=== PATIENT | female | born 1975 | race Caucasian/White ===

== ENCOUNTER 2019-06-02 00:56 | Day surgery (SDC) | payer BC, SELFPAY ==
[2019-05-27 13:07] VITALS: BMI 50.3
--- NOTE | 2019-06-02 09:57 | WPDANESEPPF ---
Anes - Initial Pre Proc Eval Procedure: Operation Date: 06/02/19 11:00 Proposed Procedures p Esophagogastroduodenoscopy & Colonoscopy - Dmitry Li MD Date/Time: 06/02/19 09:57 Surgeon: Dmitry Li MD Pre Op Diagnosis: Dysphagia, GERD, Adenomatous Colon Polyp Patient Data Age: 44 Gender: F Height: 5 ft 2 in Weight: 125 kg Allergies Allergy/AdvReac Type Severity Reaction Status Date / Time aspirin Allergy Unknown Verified 05/27/19 13:06 cimetidine Allergy Unknown Verified 05/27/19 13:06 warfarin Allergy Unknown Verified 05/27/19 13:06 Contrast Media Allergy Unknown ORAL Uncoded 05/27/19 13:06 CONTRAST ONLY-RASH Home Medications Medication Instructions Recorded Confirmed Type acetaminophen 325 mg tablet 325 mg PO Q6H PRN 04/30/19 05/27/19 History ibuprofen 200 mg capsule 200 mg PO Q6H PRN 04/30/19 05/27/19 History ranitidine HCl 150 mg capsule 150 mg PO DAILY 04/30/19 05/27/19 History duloxetine 20 mg PO BID 05/27/19 05/27/19 History Patient hx anesthesia problems: none Family hx anesthesia problems: none PMFSH Past Medical History Medical History Adenomatous colon polyp Arthritis section wound complication Diabetes Dysphagia GERD (gastroesophageal reflux disease) Ulcer Surgical History Surgical History H/O knee surgery History of bilateral breast reduction surgery Family History Family History Mother Family history of osteoporosis Family history of rheumatoid arthritis Other Cerebrovascular accident Family history of arthritis Social History Social History Smoking status: Former smoker Smoking end date: 04/29/00 Alcohol intake: current Gender identity (if verbalized by the patient): Female Anes - Eval Final PreProcedure Day of Procedure 06/02/19 09:57 Patient weight: morbidly obese Heart: regular rate and rhythm Lungs: clear to auscultation Airway: Mallampati scale class II Neurological: alert and oriented Last oral intake: >/= 8 hours ASA classification: III Emergent: no Anesthetic plan: proceed Anesthesia type and monitoring: general GIVS and standard monitoring Informed Consent: The patient's anesthetic plan and its attendant risks and benefits were discussed with the patient/family/POA. Questions were solicited and answers provided to the satisfaction of the patient/family/POA.
[2019-06-02] MEDS: LACTATED RINGERS 1,000 ML 150 ML IV CONT (09:58)
[2019-06-02 10:17] VITALS: BP 113/76; PULSE 83; RESP 16; TEMP 36.6; O2SAT 97; BMI 50.5
--- NOTE | 2019-06-02 10:36 | PM.HPGS ---
History of Present Illness History of Present Illness Consent: Risks, benefits, and alternatives have been discussed and questions answered. Patient agrees to proceed with procedure. Chief complaint: Dysphagia, GERD, Adenomatous Colon Polyp Narrative: Catrachita Serrato is a 44 year old female with gerd and dsyphagia on zantac, also history of colon polyps Review of Systems Constitutional: Constitutional: Denies headache(s) and Denies weakness Eyes: Eyes: Denies blurry vision ENT: Reports Normal hearing present, Denies headache(s) and Denies neck pain Cardiovascular: Cardiovascular: Denies chest pain and Denies dyspnea Respiratory: Respiratory: Denies dyspnea Gastrointestinal: Gastrointestinal: Reports no additional gastrointestinal complaints Genitourinary: Genitourinary: Denies dysuria Musculoskeletal: Musculoskeletal: Denies neck pain Integumentary/Breasts: Skin/Breast: Denies dry skin Neurologic: Reports Normal hearing present, Denies headache(s) and Denies weakness Psychiatric: Psychiatric: Denies anxiety Endocrine: Endocrine: Denies change in body appearance Hematologic/Lymphatic: Hematologic/Lymphatic: Denies easy bleeding Allergic/Immunologic: Allergic/Immunologic: Denies urticaria PMFSH Past Medical History Medical History Adenomatous colon polyp Arthritis section wound complication Diabetes Dysphagia GERD (gastroesophageal reflux disease) Ulcer Surgical History Surgical History H/O knee surgery History of bilateral breast reduction surgery Family History Family History Mother Family history of osteoporosis Family history of rheumatoid arthritis Other Cerebrovascular accident Family history of arthritis Social History Social History Smoking status: Former smoker Smoking end date: 04/29/00 Alcohol intake: current Gender identity (if verbalized by the patient): Female Meds Home Medications and Allergies Home Medications Medication Instructions Recorded Confirmed Type acetaminophen 325 mg tablet 325 mg PO Q6H PRN 04/30/19 05/27/19 History ibuprofen 200 mg capsule 200 mg PO Q6H PRN 04/30/19 05/27/19 History ranitidine HCl 150 mg capsule 150 mg PO DAILY 04/30/19 05/27/19 History duloxetine 20 mg PO BID 05/27/19 05/27/19 History Allergies Allergy/AdvReac Type Severity Reaction Status Date / Time aspirin Allergy Unknown Verified 06/02/19 09:59 cimetidine Allergy Unknown Verified 06/02/19 09:59 warfarin Allergy Unknown Verified 05/27/19 13:06 Contrast Media Allergy Unknown ORAL Uncoded 06/02/19 09:59 CONTRAST ONLY-RASH Vital Signs Vital Signs - 24 hr 06/02/19 10:17 Temperature 98 F Pulse Rate 83 Respiratory Rate 16 Blood Pressure 113/76 Pulse Oximetry 97 Exam Const: General: comfortable and no acute distress Nutritional Appearance: obese HENMT: General nose exam: Normal nares present Eyes: General: appearance normal, both eyes and all related structures Neck: Neck: no JVD Resp: Auscultation: clear to auscultation bilaterally Cardio: Rate: regular rate Rhythm: regular rhythm GI: Inspection: non-distended GI Palp: Yes Soft to palpation Skin: General skin exam: normal color Neuro: General: gait normal Speech: normal speech Extrem: General: normal to inspection Psych: Mental Status: mental status grossly normal Assessment and Plan Assessment and plan (1) Dysphagia: Qualifiers: Dysphagia type: pharyngoesophageal phase Qualified Code(s): R13.14 - Dysphagia, pharyngoesophageal phase Code(s): R13.10 - Dysphagia, unspecified Status: Acute Assessment and Plan: will proceed with egd (2) Adenomatous colon polyp: Qualifiers: Colon location: unspec
[2019-06-02 11:15] VITALS: BP 91/48; PULSE 85; RESP 23; O2SAT 100
[2019-06-02 11:25] VITALS: BP 102/67; PULSE 78; RESP 16; O2SAT 100
[2019-06-02 11:35] VITALS: BP 111/65; PULSE 77; RESP 22; O2SAT 100
== END 2019-06-02 11:46 | disposition home or self-care (01) ==
PROVIDERS: PCP Internal Medicine; Visit Provider Internal Medicine Gastroenterology
PROC: 0DJ08ZZ Inspection of Upper Intestinal Tract, Via Natural or Artificial Opening Endoscopic (ICD-10-PCS; CPT 43235; principal; 2019-06-02 11:00)
DX: K22.2 Esophageal obstruction (principal); K22.10 Ulcer of esophagus without bleeding; K21.0 Gastro-esophageal reflux disease with esophagitis; K44.9 Diaphragmatic hernia without obstruction or gangrene; K29.70 Gastritis, unspecified, without bleeding; K29.80 Duodenitis without bleeding; Z12.11 Encounter for screening for malignant neoplasm of colon; K63.5 Polyp of colon; K64.8 Other hemorrhoids; E11.9 Type 2 diabetes mellitus without complications; Z87.891 Personal history of nicotine dependence
CPT/HCPCS: 45385; 43239; 43249; 87081; 88305; C1726; J2704; J7120

== ENCOUNTER 2019-09-22 08:19 | Outpatient (CLI) | payer BC, SELFPAY ==
--- NOTE | ~2019-09-22 | US_ITS ---
US right upper quadrant INDICATION: Elevated liver enzymes PROCEDURE: Realtime right upper abdominal ultrasound. COMPARISON: No prior studies for comparison. FINDINGS: The pancreas is normal without focal mass or pancreatic ductal dilation. Liver echotexture is increased, consistent with fatty infiltration. There is normal directional flow in the portal ve in. The gallbladder is normal without stones, gallbladder wall thickening or pericholecystic fluid. Comm on bile duct measures 4 mm. No sonographic Rutledge's sign. IMPRESSION: 1: Fatty infiltration of the liver. Reviewed, dictated and finalized at location A.
== END 2019-09-22 08:20 | disposition home or self-care (01) ==
PROVIDERS: PCP Internal Medicine; Visit Provider Internal Medicine
DX: R94.5 Abnormal results of liver function studies (principal)
CPT/HCPCS: 76705

== ENCOUNTER 2020-03-30 12:00 | Outpatient (CLI) | payer BC, SELFPAY ==
[2020-03-30 13:54] LABS: SARS-CoV-2 Ag Negative (Negative)
== END 2020-03-30 12:01 | disposition home or self-care (01) ==
LOC: CHSLAB 12:03
PROVIDERS: PCP Internal Medicine; Visit Provider Internal Medicine
DX: Z20.828 Contact with and (suspected) exposure to other viral communicable diseases (principal)
CPT/HCPCS: 87426

== ENCOUNTER 2020-05-23 10:05 | Outpatient (CLI) | payer BC, SELFPAY ==
[2020-05-23 11:13] LABS: SARS-CoV-2 Ag Negative (Negative)
[2020-05-23 22:05] LABS: SARS-CoV-2 RNA PCR Negative
== END 2020-05-23 10:06 | disposition home or self-care (01) ==
LOC: CHSLAB 10:10
PROVIDERS: PCP Internal Medicine; Visit Provider Internal Medicine
DX: Z20.822 Contact with and (suspected) exposure to COVID-19 (principal)
CPT/HCPCS: 87426; C9803; U0003; U0005

== ENCOUNTER 2020-07-21 08:19 | Outpatient (CLI) | payer BC, SELFPAY ==
--- NOTE | ~2020-07-21 | MM_ITS ---
EXAMINATION: MM screening [facility] BI [facility] HISTORY: Screening mammogram TECHNIQUE: Craniocaudal and mediolateral oblique 3-D tomosynthesis images were obtained and synthetic 2-D images were generated. CAD analysis was submitted and interpreted. COMPARISON: 10/09/2018, 10/05/2017, 08/22/2016 BREAST PARENCHYMAL COMPOSITION: The breasts are almost entirely fatty. FINDINGS: A stable mass in the upper outer quadrant of the left breast is considered benign given the lack of interval change. There is no evidence of suspicious mass, calcification, or architectural di stortion to suggest malignancy in either breast. There has been no suspicious interval change. IMPRESSION: 1. No mammographic evidence of malignancy. 2. Recommend routine screening mammography in one year. BI-RADS Category 2: Benign finding(s). Reviewed, dictated and finalized at location A.
== END 2020-07-21 08:20 | disposition home or self-care (01) ==
LOC: ANHIMG 08:21
PROVIDERS: PCP Internal Medicine; Visit Provider Obstetrics & Gynecology
DX: Z12.31 Encounter for screening mammogram for malignant neoplasm of breast (principal)
CPT/HCPCS: 77063; 77067

== ENCOUNTER 2020-08-18 10:42 | Outpatient (CLI) | payer BC, SELFPAY ==
[2020-08-18 11:36] LABS: Basophils Absolute Auto 0.03 K/mm3 (0.00-0.10); Basophils Percent Auto 0.4 % (0.0-1.0); Eosinophils Absolute Auto 0.31 K/mm3 (0.02-0.50); Eosinophils Percent Auto 4.3 % (1.0-6.0); Hematocrit 44.1 % (35.0-49.0); Hemoglobin 14.3 g/dL (12.0-15.0); Immature Granulocyte Absolute 0.02 K/mm3 (0.00-0.00); Immature Granulocyte Percent A 0.3 % (0.0-0.0); Lymphocytes Absolute Auto 1.67 K/mm3 (1.10-4.50); Lymphocytes Percent Auto 23.4 % (18.0-42.0); Mean Corpuscular HGB Conc 32.4 g/dL (32.0-36.0); Mean Corpuscular Hemoglobin 30.4 pg (27.0-31.0); Mean Corpuscular Volume 93.6 fL (78.0-102.0); Mean Platelet Volume 9.4 fl (9.2-11.8); Monocytes Absolute Auto 0.31 K/mm3 (0.10-0.90); Monocytes Percent Auto 4.3 % (2.0-11.0); Neutrophils Absolute Auto 4.8 K/mm3 (1.7-7.2); Neutrophils Percent Auto 67.3 % (50.0-70.0); Platelet Count Result 276 K/mm3 (150-420); Red Blood Count 4.71 M/mm3 (4.20-5.40); Red Cell Distribution Width 12.2 % (11.6-14.4); White Blood Count 7.1 K/mm3 (4.8-10.8)
[2020-08-18 11:43] LABS: Appearance Urine Clear (Clear); Bilirubin Urine Negative (Negative); Color Urine Yellow (Yellow); Glucose Urine UA Negative (Negative); Ketones Urine Negative (Negative); Leukocyte Esterase Ur Negative LEU/UL (Negative); Nitrate Urine Negative (Negative); Protein Urine Negative (Negative); Urobilinogen Urine 0.2 mg/dL (0.2-1.0)
[2020-08-18 12:04] LABS: Alanine Aminotransferase 58 U/L (14-59); Albumin Level 3.5 g/dL (3.4-5.0); Alkaline Phosphatase 94 U/L (46-116); Anion Gap 7 mmol/L (8-16); Aspartate Amino Transferase 29 U/L (15-37); Bilirubin,Total 0.9 mg/dL (0.00-1.00); Blood Urea Nitrogen 12 mg/dL (7-18); Calcium 8.5 mg/dL (8.5-10.1); Carbon Dioxide 30 mmol/L (21-32); Chloride 102 mmol/L (98-108); Estimated Glomerular Filt Rate > 60; Glucose 185 mg/dL (70-99); Osmolality Calculated 292 mOsm/kg (285-295); Sodium 139 mmol/L (136-145); Total Protein 6.7 g/dL (6.4-8.2)
[2020-08-18 12:12] LABS: SARS-CoV-2 RNA PCR Negative (Negative)
[2020-08-18 12:20] LABS: Add Urine Microscopic? YES; Blood Urine Trace-Intact (Negative); Squamous Epithelial Cell Urine Many /hpf (Few); WBC Urine 0-3 /hpf (0-3)
[2020-08-18 12:21] LABS: Bacteria Urine 2+ /hpf
[2020-08-18 14:31] LABS: Hemoglobin A1C 5.8 % (<5.7)
== END 2020-08-18 10:43 | disposition home or self-care (01) ==
PROVIDERS: PCP Internal Medicine; Visit Provider Internal Medicine
DX: R05 Cough (principal); R53.83 Other fatigue; R11.0 Nausea; Z20.822 Contact with and (suspected) exposure to COVID-19; R73.01 Impaired fasting glucose
CPT/HCPCS: 36415; 80053; 81001; 83036; 84443; 85025; 86769; C9803; U0003; U0005

== ENCOUNTER 2020-10-13 00:22 | Emergency (ER) | payer BC, SELFPAY ==
--- NOTE | ~2020-10-13 | XR_ITS ---
XR chest 1V portable DATE: 10/13/2020 01:01 INDICATION: Cough, shortness of breath TECHNIQUE: Portable AP chest on 10/13/2020 at 0109 hours COMPARISON: 11/11/2018 2 view chest 01/15/2019 CT chest high resolution scan FINDINGS: Normal heart size. No hilar or mediastinal enlargement. No pulmonary infiltrate or consolidation, pleural effusion or pulmonary vascular congestion or pneumo thorax. Included skeletal structures are unremarkable. IMPRESSION: No active cardiopulmonary disease Reviewed, dictated and finalized at location A.
[2020-10-13 00:22] VITALS: BP 125/88; PULSE 97; RESP 20; TEMP 36.3; O2SAT 97
--- NOTE | 2020-10-13 00:36 | ECG_ITS ---
Measurements Intervals Bailey Rate: 95 P: 70 ND: 143 QRS: 70 QRSD: 89 T: 51 QT: 345 QTc: 434 Interpretive Statements SINUS RHYTHM BASELINE ARTIFACT- I, III, AVR, AVL, AVF NORMAL ECG Electronically Signed On 10-13-2020 7:42:10 CDT by Bao Dodd D.O.
--- NOTE | 2020-10-13 00:38 | ED.GENADULT ---
HPI - General Adult General Chief complaint: Shortness of Breath/Dyspnea Stated complaint: Shortness of Breath Source: patient Mode of arrival: ambulatory Limitations: no limitations History of Present Illness HPI narrative: Catrachita is a 45F with a PMH of GERD, tobacco abuse and possibly COPD that presented to the ED with SOB and a cough. She slept with a fan on 2 nights ago. When she woke up she was wheezing and had SOB as well as a cough. They have been getting worse. It was better after using a friends inhaler. She had a virtual visit with Dr. Morrell but couldn't wait until then. No fevers, chills, CP, nausea, vomiting, or lightheadedness. Related Data Home Medications Medication Instructions Recorded Confirmed acetaminophen 325 mg tablet 325 mg PO Q6H PRN 04/30/19 10/13/20 ibuprofen 200 mg capsule 200 mg PO Q6H PRN 04/30/19 10/13/20 ranitidine HCl 150 mg capsule 150 mg PO DAILY 04/30/19 10/13/20 duloxetine 20 mg PO BID 05/27/19 10/13/20 Allergies Allergy/AdvReac Type Severity Reaction Status Date / Time aspirin Allergy Unknown Verified 06/02/19 09:59 cimetidine Allergy Unknown Verified 06/02/19 09:59 warfarin Allergy Unknown Verified 05/27/19 13:06 Contrast Media Allergy Unknown ORAL Uncoded 06/02/19 09:59 CONTRAST ONLY-RASH Review of Systems Constitutional: Constitutional: Reports no additional constitutional complaints Eyes: Eyes: Reports no additional eye complaints ENT: Reports system reviewed and no additional complaints, except as documented Cardiovascular: Cardiovascular: Reports no additional cardiovascular complaints Respiratory: Respiratory: Reports as per HPI Gastrointestinal: Gastrointestinal: Reports no additional gastrointestinal complaints Genitourinary: Genitourinary: Reports no additional female genitourinary complaints Musculoskeletal: Musculoskeletal: Reports no additional musculoskeletal complaints Integumentary/Breasts: Skin/Breast: Reports system reviewed and no additional complaints, except as docu Neurologic: Reports system reviewed and no additional complaints, except as documented Psychiatric: Psychiatric: Reports no additional psychiatric complaints Endocrine: Endocrine: Reports no additional endocrine complaints Hematologic/Lymphatic: Hematologic/Lymphatic: Reports no additional hematologic/lymphatic complaints Allergic/Immunologic: Allergic/Immunologic: Reports no additional allergic/immunologic complaints [facility] Past Medical History Medical History (Updated 06/17/21 @ 01:29 by Mickey Hamilton DO) Adenomatous colon polyp Arthritis section wound complication Diabetes Dysphagia GERD (gastroesophageal reflux disease) Ulcer Surgical History Surgical History H/O knee surgery History of bilateral breast reduction surgery Family History Family History Mother Family history of osteoporosis Family history of rheumatoid arthritis Other Cerebrovascular accident Family history of arthritis Social History Social History Smoking status: Former smoker Smoking end date: 04/29/00 Alcohol intake: current Gender identity (if verbalized by the patient): Female Exam Const: General: no acute distress and alert Orientation/consciousness: patient oriented x3 Limitations: No altered mental status HENMT: Head: normal to inspection Mouth: Yes Normal oral and palatal mucosa present Other: atraumatic Eyes: Conjunctivae: conjunctivae normal Pupils: Equal, round and reactive pupils present Neck: Neck: normal visual inspection Chest: Chest palpation & inspection: normal inspection of the chest Resp: Other: Slightly increased respiratory effort, diffuse expiratory wheezing with prolonged expiratory phase, tachypnea Cardio: Rate: regular rate Rhythm: regular rhythm He
[2020-10-13] MEDS: IPRATROPIUM 0.5 MG/ALBUTEROL SULFATE 2.5 MG AMPUL.NEB 3 ML INHALATION (00:42)
[2020-10-13 00:51] VITALS: PULSE 97; RESP 20; O2SAT 97
[2020-10-13 01:02] LABS: Basophils Absolute Auto 0.04 K/mm3 (0.00-0.10); Basophils Percent Auto 0.5 % (0.0-1.0); Eosinophils Absolute Auto 0.33 K/mm3 (0.02-0.50); Eosinophils Percent Auto 4.3 % (1.0-6.0); Hematocrit 38.9 % (35.0-49.0); Hemoglobin 13.1 g/dL (12.0-15.0); Immature Granulocyte Absolute 0.03 K/mm3 (0.00-0.00); Immature Granulocyte Percent A 0.4 % (0.0-0.0); Lymphocytes Absolute Auto 1.21 K/mm3 (1.10-4.50); Lymphocytes Percent Auto 15.9 % (18.0-42.0); Mean Corpuscular HGB Conc 33.7 g/dL (32.0-36.0); Mean Corpuscular Hemoglobin 31.3 pg (27.0-31.0); Mean Corpuscular Volume 93.1 fL (78.0-102.0); Mean Platelet Volume 9.6 fl (9.2-11.8); Monocytes Absolute Auto 0.39 K/mm3 (0.10-0.90); Monocytes Percent Auto 5.1 % (2.0-11.0); Neutrophils Absolute Auto 5.6 K/mm3 (1.7-7.2); Neutrophils Percent Auto 73.8 % (50.0-70.0); Platelet Count Result 227 K/mm3 (150-420); Red Blood Count 4.18 M/mm3 (4.20-5.40); Red Cell Distribution Width 12.7 % (11.6-14.4); White Blood Count 7.6 K/mm3 (4.8-10.8)
[2020-10-13 01:12] LABS: INR 0.9; Prothrombin Time 9.9 Seconds (9.50-12.10)
[2020-10-13 01:16] LABS: SARS-CoV-2 Ag Negative (Negative)
[2020-10-13 01:22] LABS: Anion Gap 10 mmol/L (8-16); Blood Urea Nitrogen 11 mg/dL (7-18); Calcium 8.3 mg/dL (8.5-10.1); Carbon Dioxide 26 mmol/L (21-32); Chloride 104 mmol/L (98-108); Estimated CRCL calculation 115 ml/min; Estimated Glomerular Filt Rate > 60; Glucose 133 mg/dL (70-99); NT Pro B Type Natriuretic Pept 48 pg/mL (0-125); Osmolality Calculated 291 mOsm/kg (285-295); Potassium 3.4 mmol/L (3.5-5.1); Sodium 140 mmol/L (136-145); Troponin I 4.7 ng/L (0.00-60.4)
[2020-10-13 01:30] VITALS: PULSE 94; RESP 20; O2SAT 97
[2020-10-13] MEDS: AZITHROMYCIN 250 MG TABLET 500 MG PO (01:38)
[2020-10-13] MEDS: predniSONE 20 MG TABLET 40 MG PO (01:38)
[2020-10-13 01:39] VITALS: BP 125/88; PULSE 99; RESP 20; TEMP 36.6; O2SAT 100
== END 2020-10-13 01:40 | disposition home or self-care (01) ==
PROVIDERS: Emergency Provider Family Medicine; PCP Internal Medicine
DX: J44.1 Chronic obstructive pulmonary disease with (acute) exacerbation (principal); Z20.822 Contact with and (suspected) exposure to COVID-19
CPT/HCPCS: 36415; 71045; 80048; 83880; 84484; 85025; 85610; 87426; 93005; 94640; 99283; 99284; A9270; C9803; J7512

== ENCOUNTER 2020-10-17 23:38 | Emergency (ER) | payer BC, SELFPAY ==
--- NOTE | ~2020-10-17 | XR_ITS ---
EXAMINATION: XR ribs RT 2V INDICATION: Right rib pain TECHNIQUE: 3 views of the right ribs were obtained. COMPARISON: 10/13/2020 FINDINGS: The lungs are free of acute opacities. There is no pleural effusion or pneumothorax. The ca rdiomediastinal silhouette is normal. The visualized bones and soft tissues are unremarkable. No disp laced rib fracture is identified. IMPRESSION: 1. No acute cardiopulmonary abnormality or evidence of displaced rib fracture. Reviewed, dictated and finalized at location A.
--- NOTE | 2020-10-17 23:42 | ED.BACK ---
HPI - Back Pain/Injury General Chief Complaint: Back Pain/Injury Stated Complaint: Right Side Pain Time Seen by Provider: 10/17/20 23:42 Source: patient and RN notes reviewed Mode of arrival: EMS Limitations: no limitations History of Present Illness HPI Narrative: 45-year-old female was here recently with cough. She said today that she was coughing and she felt something pop in her right posterior rib area. MD elicited complaint: back pain Onset (ago): minute(s) (10) Timing: constant Severity: moderate Similar Symptoms Previously: No Quality: sharp and stabbing Radiation: none Exacerbating factors: movement and deep breaths Relieving factors: none Context: other (coughing) Associated symptoms: denies other symptoms Related Data Home Medications Medication Instructions Recorded Confirmed acetaminophen 325 mg tablet 325 mg PO Q6H PRN 04/30/19 10/17/20 ibuprofen 200 mg capsule 200 mg PO Q6H PRN 04/30/19 10/17/20 ranitidine HCl 150 mg capsule 150 mg PO DAILY 04/30/19 10/17/20 duloxetine 20 mg PO BID 05/27/19 10/17/20 Allergies Allergy/AdvReac Type Severity Reaction Status Date / Time aspirin Allergy Unknown Verified 06/02/19 09:59 cimetidine Allergy Unknown Verified 06/02/19 09:59 warfarin Allergy Unknown Verified 05/27/19 13:06 Contrast Media Allergy Unknown ORAL Uncoded 06/02/19 09:59 CONTRAST ONLY-RASH Review of Systems Review of Systems: All systems reviewed & are unremarkable except as noted in HPI and below PMFSH Past Medical History Medical History (Updated 10/18/20 @ 00:31 by Cameron Cooley MD) Adenomatous colon polyp Arthritis section wound complication Diabetes Dysphagia GERD (gastroesophageal reflux disease) Ulcer Surgical History Surgical History H/O knee surgery History of bilateral breast reduction surgery Family History Family History Mother Family history of osteoporosis Family history of rheumatoid arthritis Other Cerebrovascular accident Family history of arthritis Social History Social History Smoking status: Former smoker Smoking end date: 04/29/00 Alcohol intake: current Gender identity (if verbalized by the patient): Female Exam Const: General: no acute distress and alert Nutritional Appearance: obese morbidly obese Orientation/consciousness: patient oriented x3 HENMT: Head: normal to inspection Ears: external ears normal Eyes: Conjunctivae: conjunctivae normal Pupils: Equal, round and reactive pupils present EOM: EOMs intact bilaterally Neck: Neck: normal visual inspection Chest: Chest palpation & inspection: tenderness rib right mid-axillary line involving the 7th rib and involving the 8th rib Resp: Effort & Inspection: normal respiratory effort Auscultation: rhonchi (mild) left lower and right lower Cardio: Rate: regular rate Rhythm: regular rhythm GI: GI Palp: Yes Soft to palpation and No Tenderness to palpation present (GI) Auscultation: normal bowel sounds Back/Spine/Pelvis: Cervical Spine: cervical ROM normal Thoracic/Lumbar Spine: thoraco-lumbar ROM normal Skin: General skin exam: normal color Rashes: no rashes Neuro: General: patient oriented x3, moves all extremities, no meningeal signs and no focal motor deficits Speech: normal speech Gait exam (Neuro): Normal gait present Extrem: General: normal to inspection and no clubbing, cyanosis or edema Psych: Appearance: grossly normal and well kempt Mental Status: mental status grossly normal Affect: normal affect Attitude: cooperative Thought content: Yes Normal thought content present Discharge Plan Discharge Clinical Impression: Rib sprain Qualifiers: Encounter type: initial encounter Qualified Code(s): S23.41XA - Sprain of ribs, initial encounter Patient Disposition: Home, Self-Care C
[2020-10-17 23:57] VITALS: BP 132/78; PULSE 96; RESP 20; TEMP 36.8; O2SAT 95
[2020-10-18] MEDS: KETOROLAC (*BKC) 60 MG/2 ML VIAL IM (00:06)
[2020-10-18 00:30] VITALS: TEMP 37.1
[2020-10-18 00:38] VITALS: BP 132/78; PULSE 84; RESP 20; TEMP 37.1
== END 2020-10-18 00:40 | disposition home or self-care (01) ==
PROVIDERS: Emergency Provider Emergency Medicine; PCP Internal Medicine
DX: S23.41XA Sprain of ribs, initial encounter (principal)
CPT/HCPCS: 71100; 96372; 99283; J1885

== ENCOUNTER 2021-01-17 17:42 | Outpatient (CLI) | payer BC, SELFPAY ==
[2021-01-17 18:28] LABS: SARS-CoV-2 Ag Negative (Negative)
== END 2021-01-17 17:43 | disposition home or self-care (01) ==
LOC: CHSLAB 17:46
PROVIDERS: PCP Internal Medicine; Visit Provider Internal Medicine
DX: Z20.822 Contact with and (suspected) exposure to COVID-19 (principal)
CPT/HCPCS: 87426; C9803

== ENCOUNTER 2021-01-26 14:51 | Outpatient (CLI) | payer BC, SELFPAY ==
[2021-01-26 15:27] LABS: SARS-CoV-2 Ag Negative (Negative)
== END 2021-01-26 14:52 | disposition home or self-care (01) ==
PROVIDERS: PCP Internal Medicine; Visit Provider Internal Medicine
DX: Z20.822 Contact with and (suspected) exposure to COVID-19 (principal)
CPT/HCPCS: 87426; C9803

== ENCOUNTER 2021-02-02 15:59 | Outpatient (CLI) | payer BC, SELFPAY ==
[2021-02-02 16:32] LABS: SARS-CoV-2 Ag Negative (Negative)
== END 2021-02-02 16:00 | disposition home or self-care (01) ==
LOC: CHSLAB 16:02
PROVIDERS: PCP Internal Medicine; Visit Provider Internal Medicine
DX: Z20.822 Contact with and (suspected) exposure to COVID-19 (principal)
CPT/HCPCS: 87426; C9803

== ENCOUNTER 2021-02-09 11:55 | Outpatient (CLI) | payer BC, SELFPAY ==
[2021-02-09 12:32] LABS: SARS-CoV-2 Ag Negative (Negative)
== END 2021-02-09 11:56 | disposition home or self-care (01) ==
LOC: CHSLAB 11:56
PROVIDERS: PCP Internal Medicine; Visit Provider Internal Medicine
DX: Z20.822 Contact with and (suspected) exposure to COVID-19 (principal)
CPT/HCPCS: 87426; C9803

== ENCOUNTER 2021-02-20 16:29 | Outpatient (CLI) | payer BC, SELFPAY ==
[2021-02-20 17:05] LABS: SARS-CoV-2 Ag Negative (Negative)
== END 2021-02-20 16:30 | disposition home or self-care (01) ==
LOC: CHSLAB 16:31
PROVIDERS: PCP Internal Medicine; Visit Provider Internal Medicine
DX: Z20.822 Contact with and (suspected) exposure to COVID-19 (principal)
CPT/HCPCS: 87426; C9803

== ENCOUNTER 2021-02-28 14:13 | Outpatient (CLI) | payer BC, SELFPAY ==
[2021-02-28 14:55] LABS: SARS-CoV-2 Ag Negative (Negative)
== END 2021-02-28 14:14 | disposition home or self-care (01) ==
PROVIDERS: PCP Internal Medicine; Visit Provider Internal Medicine
DX: Z20.822 Contact with and (suspected) exposure to COVID-19 (principal)
CPT/HCPCS: 87426; C9803

== ENCOUNTER 2021-03-08 15:09 | Outpatient (CLI) | payer BC, SELFPAY ==
[2021-03-08 15:51] LABS: SARS-CoV-2 Ag Negative (Negative)
== END 2021-03-08 15:10 | disposition home or self-care (01) ==
LOC: CHSLAB 15:11
PROVIDERS: PCP Internal Medicine; Visit Provider Internal Medicine
DX: Z20.822 Contact with and (suspected) exposure to COVID-19 (principal)
CPT/HCPCS: 87426; C9803

== ENCOUNTER 2021-03-14 14:01 | Outpatient (CLI) | payer BC, SELFPAY ==
[2021-03-14 14:59] LABS: SARS-CoV-2 Ag Negative (Negative)
== END 2021-03-14 14:02 | disposition home or self-care (01) ==
LOC: CHSLAB 14:03
PROVIDERS: PCP Internal Medicine; Visit Provider Internal Medicine
DX: Z20.822 Contact with and (suspected) exposure to COVID-19 (principal)
CPT/HCPCS: 87426; C9803

== ENCOUNTER 2021-03-22 10:20 | Outpatient (CLI) | payer BC, SELFPAY ==
[2021-03-22 12:55] LABS: SARS-CoV-2 Ag Negative (Negative)
== END 2021-03-22 10:21 | disposition home or self-care (01) ==
LOC: CHSLAB 10:22
PROVIDERS: PCP Internal Medicine; Visit Provider Internal Medicine
DX: Z20.822 Contact with and (suspected) exposure to COVID-19 (principal)
CPT/HCPCS: 87426; C9803

== ENCOUNTER 2021-03-28 13:11 | Outpatient (CLI) | payer BC, SELFPAY ==
[2021-03-28 14:39] LABS: Influenza Control Valid (Valid)
[2021-03-28 14:42] LABS: SARS-CoV-2 Ag Positive (Negative)
== END 2021-03-28 13:12 | disposition home or self-care (01) ==
LOC: CHSLAB 13:13
PROVIDERS: PCP Internal Medicine; Visit Provider Internal Medicine
DX: U07.1 COVID-19 (principal)
CPT/HCPCS: 87426; 87804; C9803

== ENCOUNTER 2021-04-05 14:11 | Outpatient (CLI) | payer BC, SELFPAY ==
--- NOTE | ~2021-04-05 | XR_ITS ---
EXAMINATION: XR chest 2V EXAM DATE: 04/05/2021 14:28 INDICATION: cough, COVID TECHNIQUE: Frontal and lateral projections of the chest obtained and reviewed. Comparison is made to prior examination from 10/18/2020. FINDINGS: There is small to moderate amount of ill-defined left-sided mid lung zone airspace disease , appearance is consistent with COVID pneumonia. Right lung is clear. Cardiomediastinal silhouette is normal. There is no pneumothorax suspected. There are no pleural effusions. There are no osseous abn ormalities identified. IMPRESSION: Small to moderate amount of left lung zone pneumonia. Reviewed, dictated and finalized at location A. MIXER
[2021-04-05 14:44] LABS: Basophils Absolute Auto 0.01 K/mm3 (0.00-0.10); Basophils Percent Auto 0.2 % (0.0-1.0); Eosinophils Absolute Auto 0.14 K/mm3 (0.02-0.50); Eosinophils Percent Auto 2.8 % (1.0-6.0); Hematocrit 41.7 % (35.0-49.0); Hemoglobin 14.6 g/dL (12.0-15.0); Lymphocytes Percent Auto 32.5 % (18.0-42.0); Mean Corpuscular Hemoglobin 30.4 pg (27.0-31.0); Mean Corpuscular Volume 86.9 fL (78.0-102.0); Mean Platelet Volume 10.1 fl (9.2-11.8); Monocytes Percent Auto 8.1 % (2.0-11.0); Neutrophils Absolute Auto 2.8 K/mm3 (1.7-7.2); Neutrophils Percent Auto 56.4 % (50.0-70.0); Platelet Count Result 162 K/mm3 (150-420); Red Cell Distribution Width 12.2 % (11.6-14.4); White Blood Count 4.9 K/mm3 (4.8-10.8)
[2021-04-05 15:08] LABS: Alanine Aminotransferase 45 U/L (14-59); Albumin Level 3.4 g/dL (3.4-5.0); Alkaline Phosphatase 99 U/L (46-116); Anion Gap 10 mmol/L (8-16); Aspartate Amino Transferase 35 U/L (15-37); Bilirubin,Total 0.7 mg/dL (0.00-1.00); Blood Urea Nitrogen 10 mg/dL (7-18); CRP 0.9 mg/dL (0.0-0.9); Carbon Dioxide 27 mmol/L (21-32); Chloride 102 mmol/L (98-108); Estimated Glomerular Filt Rate > 60; Glucose 91 mg/dL (70-99); Osmolality Calculated 287 mOsm/kg (285-295); Potassium 3.9 mmol/L (3.5-5.1); Sodium 139 mmol/L (136-145)
== END 2021-04-05 14:12 | disposition home or self-care (01) ==
PROVIDERS: PCP Internal Medicine; Visit Provider Internal Medicine
DX: U07.1 COVID-19 (principal); R05.9 Cough, unspecified
CPT/HCPCS: 36415; 71046; 80053; 85025; 86140

== ENCOUNTER 2021-04-17 10:33 | Outpatient (CLI) | payer BC, SELFPAY ==
[2021-04-17 12:10] LABS: SARS-CoV-2 Ag Negative (Negative)
== END 2021-04-17 10:34 | disposition home or self-care (01) ==
LOC: CHSLAB 10:35
PROVIDERS: PCP Internal Medicine; Visit Provider Internal Medicine
DX: Z20.822 Contact with and (suspected) exposure to COVID-19 (principal)
CPT/HCPCS: 87426; C9803

== ENCOUNTER 2021-12-28 14:47 | Outpatient (CLI) | payer BC, SELFPAY ==
--- NOTE | ~2021-12-28 | XR_ITS ---
EXAMINATION: XR chest 2V DATE: 12/28/2021 15:13 INDICATION: Chest pain. Cough. TECHNIQUE: Frontal and lateral views of the chest were obtained on 3 radiographs. COMPARISON: Chest 2 views 04/05/2021 FINDINGS: The chest demonstrates clear lungs without pneumonia, pleural effusion, or pneumothorax. Th e heart size is normal. IMPRESSION: 1. No acute cardiopulmonary disease. Reviewed, dictated and finalized at location A.
[2021-12-28 15:04] LABS: Basophils Absolute Auto 0.04 K/mm3 (0.00-0.10); Basophils Percent Auto 0.5 % (0.0-1.0); Eosinophils Absolute Auto 0.21 K/mm3 (0.02-0.50); Eosinophils Percent Auto 2.6 % (1.0-6.0); Hematocrit 45.8 % (35.0-49.0); Hemoglobin 15.2 g/dL (12.0-15.0); Immature Granulocyte Absolute 0.03 K/mm3 (0.00-0.00); Immature Granulocyte Percent A 0.4 % (0.0-0.0); Lymphocytes Absolute Auto 1.62 K/mm3 (1.10-4.50); Lymphocytes Percent Auto 20.3 % (18.0-42.0); Mean Corpuscular HGB Conc 33.2 g/dL (32.0-36.0); Mean Corpuscular Hemoglobin 31.5 pg (27.0-31.0); Mean Corpuscular Volume 94.8 fL (78.0-102.0); Mean Platelet Volume 9.4 fl (9.2-11.8); Monocytes Absolute Auto 0.45 K/mm3 (0.10-0.90); Monocytes Percent Auto 5.6 % (2.0-11.0); Neutrophils Absolute Auto 5.6 K/mm3 (1.7-7.2); Neutrophils Percent Auto 70.6 % (50.0-70.0); Platelet Count Result 277 K/mm3 (150-420); Red Blood Count 4.83 M/mm3 (4.20-5.40); Red Cell Distribution Width 12.4 % (11.6-14.4)
[2021-12-28 15:15] LABS: D Dimer 0.33 mg/L (0.19-0.50)
[2021-12-28 15:26] LABS: Alanine Aminotransferase 43 U/L (14-59); Albumin Level 3.8 g/dL (3.4-5.0); Alkaline Phosphatase 91 U/L (46-116); Anion Gap 10 mmol/L (8-16); Aspartate Amino Transferase 23 U/L (15-37); Bilirubin,Total 0.7 mg/dL (0.00-1.00); Blood Urea Nitrogen 14 mg/dL (7-18); Calcium 8.9 mg/dL (8.5-10.1); Carbon Dioxide 26 mmol/L (21-32); Chloride 103 mmol/L (98-108); Creatine Kinase 87 U/L (26-192); Estimated Glomerular Filt Rate > 60; Glucose 105 mg/dL (70-99); Osmolality Calculated 288 mOsm/kg (285-295); Potassium 3.9 mmol/L (3.5-5.1); Sodium 139 mmol/L (136-145); Total Protein 7.2 g/dL (6.4-8.2); Troponin I 5.2 ng/L (0.00-60.4)
[2021-12-28 15:44] LABS: Influenza A QL RT-PCR Negative (Negative); Influenza B QL RT-PCR Negative (Negative); SARS-CoV-2 RNA PCR Negative (Negative)
== END 2021-12-28 14:48 | disposition home or self-care (01) ==
LOC: CHSLAB 14:50
PROVIDERS: PCP Internal Medicine; Visit Provider Nurse Practitioner Family
DX: R04.2 Hemoptysis (principal); R07.9 Chest pain, unspecified; R05.9 Cough, unspecified; Z20.822 Contact with and (suspected) exposure to COVID-19
CPT/HCPCS: 36415; 71046; 80053; 82550; 82553; 84484; 85025; 85380; 87502; C9803; U0003; U0005

== ENCOUNTER 2022-02-16 10:16 | Outpatient (CLI) | payer BC, SELFPAY ==
[2022-02-16 11:14] LABS: Influenza A QL RT-PCR Negative (Negative); Influenza B QL RT-PCR Negative (Negative); SARS-CoV-2 RNA PCR Negative (Negative)
[2022-02-16 11:17] LABS: RSV RNA, RT-PCR Negative (Negative)
== END 2022-02-16 10:17 | disposition home or self-care (01) ==
LOC: CHSLAB 10:19
PROVIDERS: PCP Internal Medicine; Visit Provider Internal Medicine
DX: J06.9 Acute upper respiratory infection, unspecified (principal); Z20.822 Contact with and (suspected) exposure to COVID-19
CPT/HCPCS: 87502; C9803; U0003; U0005

== ENCOUNTER 2022-02-28 07:32 | Outpatient (CLI) | payer BC, SELFPAY ==
--- NOTE | ~2022-02-28 | CT_ITS ---
EXAMINATION: CTA chest PE protocol DATE: 02/28/2022 08:15 INDICATION: Dyspnea. Pleuritic right chest pain. TECHNIQUE: Computed tomography angiography (CTA) of the chest was performed with 100 mL Omnipaque-350 intravenous contrast timed to evaluate the pulmonary arteries. Coronal maximum intensity projection 3D-reconstructions were created by the technologist. Automated exposure control and iterative reconst ruction technique were employed. Exam dose: 969.47 mGy-cm total exam DLP. COMPARISON: 12/28/2021 2 view chest FINDINGS: The pulmonary arteries are moderately opacified, without evidence of filling defect to sugg est pulmonary embolism. No thoracic aortic aneurysm or dissection. Normal heart size. No pericardial or pleural effusion. No hilar or mediastinal mass lesion or lymphadenopathy. Small sliding hiatal hernia. No pulmonary infiltrate or consolidation or pulmonary mass. Old healed lateral right fourth rib fracture. Recent minimally displaced lateral right sixth rib frac ture. Ununited lateral old right ninth rib fracture. 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 Reviewed, dictated and finalized at location A.
== END 2022-02-28 07:33 | disposition home or self-care (01) ==
LOC: CHSIMG 07:33
PROVIDERS: PCP Internal Medicine; Visit Provider Internal Medicine
DX: R06.00 Dyspnea, unspecified (principal); R07.9 Chest pain, unspecified
CPT/HCPCS: 71275; Q9967